=== PATIENT | female | born 1965 | race Caucasian/White ===

== ENCOUNTER → 2018-01-06 | Outpatient (CLI) | payer OTHER ==
[~2018-01-06] MED LIST: RT-ALBUTEROL SULF 2.5 MG/3 ML PRE-MIX VIAL INH ONE
== END ==
LOC: RT 08:15
PROVIDERS: ATTEND Nurse Practitioner Family
DX: J44.9 Chronic obstructive pulmonary disease, unspecified (principal); J98.4 Other disorders of lung; J30.2 Other seasonal allergic rhinitis; R06.00 Dyspnea, unspecified; G47.33 Obstructive sleep apnea (adult) (pediatric)
CPT/HCPCS: 94060; 94726; 94729

== ENCOUNTER → 2019-01-22 | Outpatient (CLI) | payer OTHER ==
--- NOTE | 2019-01-22 11:35 | Diagnostic Imaging Report ---
INDICATION: ROJELIO,DYSPNEA,COPD,SEASONAL ALLERGIES COMPARISON: CT dated 02/23/2015. FINDINGS: Frontal and lateral views of the chest demonstrate normal heart size and pulmonary vascularity. The lungs are clear. There are no signs of infiltrate, pleural effusions or pneumothoraces. The visualized osseous structures show no acute abnormalities. IMPRESSION: 1. No acute process. No signs of infiltrates, effusions or pneumothoraces. Dictated by: Dictated on workstation # [id number]
== END ==
LOC: RAD 10:56
PROVIDERS: ATTEND Nurse Practitioner Family
DX: G47.33 Obstructive sleep apnea (adult) (pediatric) (principal); J44.9 Chronic obstructive pulmonary disease, unspecified; J30.2 Other seasonal allergic rhinitis
CPT/HCPCS: 71046

== ENCOUNTER → 2020-03-31 | Outpatient (CLI) | payer OTHER ==
--- NOTE | 2020-03-31 09:41 | Diagnostic Imaging Report ---
CT Lung Screening INDICATION: [id number] history of smoking TECHNIQUE: Noncontrast, low-dose CT imaging performed according to the lung cancer screening protocol. Auto Exposure Controls were utilize during the CT exam to meet ALARA standards for radiation dose reduction. COMPARISON: 02/23/2015 FINDINGS: Several small micronodules identified scattered about both lungs. Majority of these measure 3 to 4 mm in diameter. There is, however, a 6 mm micronodular density within the anterior margins of the lingula of the left upper lobe (image 92, series 2). Corresponding density is only faintly visualized on prior exam dated 02/23/2015. This, however, may be in part due to differences in slice thickness. Note is also made of background mild emphysematous changes. There is no focal consolidation, large effusion, nor pneumothorax. Cardiomediastinal structures show normal heart size. There is no large pericardial effusion. There is mild enlargement of the main pulmonary arterial trunk, as it measures 3.2 cm in diameter. Mild scattered calcified aortic atherosclerosis is noted. Mediastinal lymph node anterior to the origin of the right mainstem bronchus measures 1.2 x 1 cm. This, however, is stable compared to 02/23/2015. No abnormal hilar adenopathy is seen on this noncontrast exam. No abnormal axillary lymph nodes are identified. Osseous structures show age-related degenerative changes. No lytic or blastic osseous lesions are seen. Included portions of the upper abdomen are unremarkable. IMPRESSION: 1. Several small micronodules are again identified bilaterally. Largest is seen within the lingula of the left upper lobe. Again, this does appear slightly more prominent, although this may be related to differences in slice thickness between the exams. Short interval six-month follow-up is recommended to ensure stability. 2. Background mild emphysematous changes. LUNG-RADS CATEGORY:3 MODIFIER:None OTHER SIGNIFICANT FINDINGS:None Dictated by: Dictated on workstation # [id number]
== END ==
LOC: RT 08:00
PROVIDERS: ATTEND Nurse Practitioner Family
DX: J43.9 Emphysema, unspecified (principal); R91.8 Other nonspecific abnormal finding of lung field; Z87.891 Personal history of nicotine dependence
CPT/HCPCS: 71271; 94060; 94726; 94729

== ENCOUNTER → 2020-06-16 | Outpatient (CLI) | payer OTHER ==
[~2020-06-16] MED LIST changes: +CATHETER FLUSH 10 ML SYR IV PRN; +HOLD METFORMIN - RECEIVED CONTRAST 20 ML VIAL IV SCH; +IOHEXOL 350 MG/ML 100 ML (OMNIPAQUE 350) VIAL IV ONE; +NS 100 ML (IVPB) BAG IV ONE; -RT-ALBUTEROL SULF 2.5 MG/3 ML PRE-MIX VIAL INH ONE
[2020-06-16 07:38] LABS: BUN/CREATININE RATIO 22; CREATININE SERUM 0.64 MG/DL (0.60-1.30); GFR ESTIMATED > 60
--- NOTE | 2020-06-16 10:15 | Diagnostic Imaging Report ---
PROCEDURE: CT chest with contrast only. TECHNIQUE: Multiple contiguous axial images were obtained through the chest after administration of intravenous contrast. Auto Exposure Controls were utilized during the CT exam to meet ALARA standards for radiation dose reduction. INDICATION: COPD COMPARISON: 03/31/2020 FINDINGS: On the previous exam, there is a 6 mm subpleural micronodule in the left upper lobe which can no longer be identified. Its resolution confirms its benignity. There are a few additional subpleural 2 to 3 mm micronodules bilaterally greatest in the upper lobes which are unchanged from multiple previous, chronic and benign. No new dominant or suspicious lung mass. No findings of lung cancer. There is air trapping and features of centrilobular emphysema present. There is no thoracic lymphadenopathy. No pleural or pericardial effusion. No acute chest wall pathology. The aorta is patent and nonaneurysmal. There is no pulmonary arterial embolus or filling defect. IMPRESSION: Left upper lobe nodule of concern present on prior has resolved. There are additional largely 2 to 3 mm subpleural micronodules scattered bilaterally unchanged. No new dominant or suspicious mass. Centrilobular emphysema chronic. No acute vascular abnormality. Dictated by: Dictated on workstation # [id number]
== END ==
LOC: RAD 08:15
PROVIDERS: ATTEND Internal Medicine Critical Care Medicine
DX: J43.2 Centrilobular emphysema (principal); R91.8 Other nonspecific abnormal finding of lung field
CPT/HCPCS: 36415; 71260; 82565; 84520

== ENCOUNTER → 2021-06-19 | Outpatient (CLI) | payer BC, OTHER ==
--- NOTE | 2021-06-19 13:10 | Diagnostic Imaging Report ---
CT Lung Screening INDICATION:Screening for lung cancer, 30 pack year history of smoking, previously quit smoking, former smoker TECHNIQUE: Noncontrast, low-dose CT imaging performed according to the lung cancer screening protocol. Auto Exposure Controls were utilize during the CT exam to meet ALARA standards for radiation dose reduction. COMPARISON:06/16/2020, 03/31/2020, 02/23/2015 FINDINGS:A 2 cm round mass is identified within the superior aspect of the right breast which is not definitely seen on prior imaging. No significant adenopathy within chest. No aneurysmal dilatation of thoracic aorta. Mild scattered vascular calcifications. The heart is within normal limits in size. Pericardial effusion. No pleural effusion. The trachea is patent. No pneumothorax. Moderate background emphysematous changes, predominantly centrilobular in nature. Bilateral sub-4 mm pulmonary nodules, predominantly in a subpleural location are again identified. These do not appear significantly changed since the prior examination. No new suspicious pulmonary nodule. Mild bibasilar scarring and/or atelectasis. The minimally visualized upper abdomen is unremarkable. Scattered osseous degenerative changes without acute osseous abnormality. IMPRESSION:Stable bilateral sub-4 mm pulmonary nodules without new pulmonary nodule. Given size and stability, these are felt to be benign in appearance or behavior. 2 cm right breast mass. Recommend diagnostic mammography with potential targeted right breast ultrasound for further evaluation, particularly if patient has not had recent screening mammography. Moderate background emphysematous changes with mild bibasilar scarring and/or atelectasis. LUNG-RADS CATEGORY:2S: Benign appearance or behavior MODIFIER:S: Right breast mass for which further evaluation with diagnostic mammography and potential right breast ultrasound is recommended. Moderate background emphysematous changes. FOLLOWUP: 1. Diagnostic right breast mammography with potential right breast ultrasound if no recent mammography has been performed. 2. Continued annual low-dose screening CT of the chest recommended in 12 months. Dictated by: Dictated on workstation # [id number]
== END ==
LOC: RAD 10:15
PROVIDERS: ATTEND Internal Medicine Critical Care Medicine
DX: Z12.2 Encounter for screening for malignant neoplasm of respiratory organs (principal); R91.8 Other nonspecific abnormal finding of lung field; Z87.891 Personal history of nicotine dependence
CPT/HCPCS: 71271